=== PATIENT | male | born 1950 | race Caucasian/White ===

== ENCOUNTER 2020-12-08 11:07 | Outpatient (CLI) | payer MEDICARE, OTHER, SELFPAY ==
--- NOTE | ~2020-12-08 | US_ITS ---
EXAMINATION: US venous doppler LE RT DATE: 12/08/2020 11:49 INDICATION: Right lower limb swelling TECHNIQUE: Chung scale images without and with compression and Doppler images of the right lower extre mity veins were obtained. COMPARISON: None FINDINGS: There is thrombosis of the popliteal vein, peroneal trunk, and posterior tibial veins, and veins. The right common femoral vein, profunda vein, femoral vein, and greater saphenous veins are pa tent. IMPRESSION: Deep venous thrombosis of the popliteal, posterior tibial, and peroneal veins. Reviewed, dictated and finalized at location B.
== END 2020-12-08 11:08 | disposition home or self-care (01) ==
PROVIDERS: PCP Family Medicine; Visit Provider Family Medicine
DX: R60.0 Localized edema (principal)
CPT/HCPCS: 93971

== ENCOUNTER 2020-12-18 17:56 | Emergency (ER) | payer MEDICARE, OTHER, SELFPAY ==
[2020-12-18 18:10] VITALS: BP 165/63; PULSE 55; RESP 18; TEMP 36.5; O2SAT 99
--- NOTE | 2020-12-18 18:34 | ED.SKABFB ---
HPI - Skin/Abscess/Foreign Bdy General Chief complaint: Skin/Abscess/Foreign Body Stated complaint: Wasp Bite Time Seen by Provider: 12/18/20 18:34 Source: patient Mode of arrival: ambulatory Limitations: no limitations History of Present Illness HPI narrative: Javier Jacobs is a 70-year-old male who comes here with a wasp into his left wrist yesterday and has swelling of his forearm and hand, very little pain but is pronounced swelling. He has a PMH of high blood pressure and high cholesterol Related Data Allergies Allergy/AdvReac Type Severity Reaction Status Date / Time No Known Drug Allergies Allergy Unknown Other Verified 12/18/20 18:15 Review of Systems Review of Systems: CONSTITUTIONAL: Denies fever, chills, sweats. EYES: Denies visual changes, redness, discharge. ENT: Denies rhinorrhea, congestion, sore throat, otalgia. CARDIOVASCULAR: Denies chest pain, palpitations, edema. RESPIRATORY: Denies dyspnea, wheezing, cough GASTROINTESTINAL: Denies abdominal pain, nausea, vomiting, diarrhea. GENITOURINARY: Denies dysuria, hematuria, abnormal discharge SKIN: Denies rash or itching. Swelling of left forearm and hand from a wasp in yesterday NEUROLOGIC: Denies numbness, or focal weakness. PSYCHIATRIC: Denies anxiety or depression. [facility] Past Medical History Medical History Benign essential HTN BPH (benign prostatic hyperplasia) Gout Melanosis of colon Mixed hyperlipidemia Surgical History Surgical History H/O colonoscopy with polypectomy 2017, repeat in 2020 Family History Family History Mother Family history of premature coronary heart disease, Onset Age: 75 Sibling Family history of primary malignant neoplasm of liver Family history of malignant neoplasm of breast in first degree relative Patient's sister is Social History Social History Social History: Smoking status: Smoker, status unknown (Pt chews tobacco) Smokeless tobacco user: chewing tobacco Alcohol intake: current Drinks per week: 7 Substance use: never Substance use type: does not use Gender identity (if verbalized by the patient): Male Comments At time of signature, I agree with nursing past medical, surgical, social and family history. There is no relevant family history pertinent to the presenting complaint. Exam Narrative: GENERAL: This is a well-nourished, well-developed patient, in mild distress. HEAD: normocephalic, atraumatic. EYES: Sclera clear/white. Vision is grossly intact. EARS: External ears normal, Hearing grossly intact. NOSE: External nose normal without nasal discharge, nares without redness, no rhinorrhea. THROAT: Mucous membranes moist, NECK: Neck supple, non-tender CARDIOVASCULAR: Irregular rate and rhythm without murmurs, gallops, or rubs. RESPIRATORY: Clear to auscultation. Breath sounds equal bilaterally. No wheezes, rales, or rhonchi. GASTROINTESTINAL: Abdomen soft, SKIN: warm, intact with swelling the left forearm and hand has good sponsorship coordinator strength has good pulses skin is taunt and red NEURO: awake, alert, and oriented to person, place and time. There were no obvious focal neurologic abnormalities. Steady gait EXTREMITIES: Normal range of motion. BACK: Nontender without deformity Course Course Emergency Course: Patient comes to [facility] for treatment of the lessening of his left forearm and hand which are swollen and red Given prednisone IM 80 mg here Start on Medrol Dosepak along with Pepcid and Benadryl Vital Signs Vital signs: Vital Signs Temperature 97.7 F 12/18/20 18:10 Pulse Rate 55 L 12/18/20 18:10 Respiratory Rate 18 12/18/20 18:10 Blood Pressure 165/63 H 12/18/20 18:10 Pulse Oximetry 99 12/18/20 18:10 Temperat
[2020-12-18] MEDS: methylPREDNISolone ACETATE 80 MG/ML VIAL IM (18:50)
== END 2020-12-18 18:58 | disposition home or self-care (01) ==
PROVIDERS: Emergency Provider Nurse Practitioner; PCP Family Medicine
DX: T63.461A Toxic effect of venom of wasps, accidental (unintentional), initial encounter (principal); I10 Essential (primary) hypertension; N40.0 Benign prostatic hyperplasia without lower urinary tract symptoms; M10.9 Gout, unspecified; E78.2 Mixed hyperlipidemia; K63.89 Other specified diseases of intestine
CPT/HCPCS: 96372; 99213; G0463; J1040

== ENCOUNTER 2021-11-28 08:02 | Emergency (ER) | payer MEDICARE, OTHER, SELFPAY ==
[2021-11-28 08:13] VITALS: BP 124/73; PULSE 74; RESP 16; TEMP 37.2; O2SAT 98
--- NOTE | 2021-11-28 08:18 | ED.EXTPRO ---
HPI - Extremity Problem General Chief complaint: Skin/Abscess/Foreign Body Stated complaint: left hand swollen Time Seen by Provider: 11/28/21 08:19 History of Present Illness HPI Narrative: Javier Jacobs is a 71 yo male with a PMH HTN, high cholesterol, anticoagulation, [facility] with a wasp sting in his left wrist that is swollen that occurred yesterday. Related Data Home Medications Medication Instructions Recorded Confirmed rivaroxaban 20 mg tablet (Xarelto) tablet 11/28/21 Allergies Allergy/AdvReac Type Severity Reaction Status Date / Time No Known Drug Allergies Allergy Unknown Other Verified 07/27/21 14:21 Review of Systems Review of Systems: CONSTITUTIONAL: Denies fever, chills, sweats. EYES: Denies visual changes, redness, discharge. ENT: Denies rhinorrhea, congestion, sore throat, otalgia. CARDIOVASCULAR: Denies chest pain, palpitations, edema. RESPIRATORY: Denies dyspnea, wheezing, cough GASTROINTESTINAL: Denies abdominal pain, nausea, vomiting, diarrhea. GENITOURINARY: Denies dysuria, hematuria, abnormal discharge SKIN: Denies rash or itching. Red swollen left breast attributed to ascending NEUROLOGIC: Denies numbness, or focal weakness. PSYCHIATRIC: Denies anxiety or depression. [facility] Past Medical History Medical History Benign essential HTN BPH (benign prostatic hyperplasia) Gout Melanosis of colon Mixed hyperlipidemia Surgical History Surgical History H/O colonoscopy with polypectomy 2017, repeat in 2020 Family History Family History Mother Family history of premature coronary heart disease, Onset Age: 75 Sibling Family history of primary malignant neoplasm of liver Family history of malignant neoplasm of breast in first degree relative Patient's sister is Social History Social History Social History: Smoking status: Smoker, status unknown (Pt still chews tobacco. ) Smokeless tobacco user: chewing tobacco Alcohol intake: current Drinks per week: 7 Substance use: never Substance use type: does not use Gender identity (if verbalized by the patient): Male Sexual Orientation (if Verbalized by the Patient): Straight or Heterosexual Exam Narrative: GENERAL: This is a well-nourished, well-developed patient, in mild distress. HEAD: normocephalic, atraumatic. EYES: . Sclera clear/white. Vision is grossly intact. EARS: External ears normal, Hearing grossly intact. NOSE: External nose normal without nasal discharge, nares without redness, no rhinorrhea. THROAT: Mucous membranes moist, NECK: Neck supple, non-tender CARDIOVASCULAR: Regular rate and rhythm without murmurs, gallops, or rubs. RESPIRATORY: Clear to auscultation. Breath sounds equal bilaterally. No wheezes, rales, or rhonchi. GASTROINTESTINAL: Abdomen soft, non-tender, SKIN: warm, intact with left hand swelling, swelling. Area of bee sting is flat and clean, denies pain able to move fingers but states hand feels tight NEURO: awake, alert, and oriented to person, place and time. There were no obvious focal neurologic abnormalities. Steady gait EXTREMITIES: Normal range of motion. BACK: Nontender without deformity Course Course Emergency Course: Patient here with worsening of left hand Given 125 mg of Solu-Medrol and started on a Medrol dose taper pack discussed use to Benadryl twice daily and Pepcid 20 mg a day for the next few days Level of Care: Express Care Visit Vital Signs Vital signs: Vital Signs Temperature 98.9 F 11/28/21 08:13 Pulse Rate 74 11/28/21 08:13 Respiratory Rate 16 11/28/21 08:13 Blood Pressure 124/73 11/28/21 08:13 Pulse Oximetry 98 11/28/21 08:13 Oxygen Delivery Room Air 11/28/21 08:13 Temperature
[2021-11-28] MEDS: methylPREDNISolone SOD SUCC 125 MG VIAL IM (08:38)
== END 2021-11-28 08:59 | disposition home or self-care (01) ==
PROVIDERS: Emergency Provider Nurse Practitioner
DX: T63.461A Toxic effect of venom of wasps, accidental (unintentional), initial encounter (principal); F17.220 Nicotine dependence, chewing tobacco, uncomplicated; I10 Essential (primary) hypertension; N40.0 Benign prostatic hyperplasia without lower urinary tract symptoms; M10.9 Gout, unspecified; E78.2 Mixed hyperlipidemia; K63.89 Other specified diseases of intestine
CPT/HCPCS: 96372; 99213; G0463; J2930

== ENCOUNTER 2022-02-08 12:05 | Outpatient (CLI) | payer MEDICARE, OTHER, SELFPAY ==
--- NOTE | ~2022-02-08 | US_ITS ---
EXAMINATION:US venous doppler LE RT INDICATION:History of DVT TECHNIQUE: Multiple grayscale, color flow and Doppler images of the right lower extremity deep venous systems were obtained and reviewed. COMPARISON:12/08/2020 FINDINGS: The common femoral, superficial femoral and popliteal veins demonstrate normal respiratory variation, augmentation and compressibility. Color flow is also seen within the posterior tibial, pe roneal, greater saphenous and profunda veins. IMPRESSION: 1: No lower extremity deep venous thrombosis. Reviewed, dictated and finalized at location A.
== END 2022-02-08 12:06 | disposition home or self-care (01) ==
PROVIDERS: PCP Family Medicine; Visit Provider Nurse Practitioner Gerontology
DX: Z86.718 Personal history of other venous thrombosis and embolism (principal)
CPT/HCPCS: 93971

== ENCOUNTER 2022-07-02 11:14 | Outpatient (CLI) | payer MEDICARE, OTHER, SELFPAY ==
--- NOTE | ~2022-07-02 | XR_ITS ---
EXAMINATION: XR lumbar spine min 4V DATE: 07/02/2022 11:30 INDICATION: Low back pain TECHNIQUE: Anteroposterior, lateral, and bilateral oblique views of the lumbar spine, and cone-down l ateral view of the lumbosacral junction were obtained. COMPARISON: CT, 09/19/2017 FINDINGS: There are 3 mm of anterolisthesis of L4 on L5. Bone alignment is otherwise normal. There is no fracture. There is mild loss of intervertebral disc space height at L2-3, L4-5, and L5-S1. Small degenerative osteophytes project from the anterior endplates of multiple vertebral bodies. The verteb ral body heights are maintained. 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 IMPRESSION: 1. Mild to moderate lumbar spondylosis without acute findings. Reviewed, dictated and finalized at location L. [employer]
== END 2022-07-02 11:15 | disposition home or self-care (01) ==
PROVIDERS: PCP Family Medicine; Visit Provider Nurse Practitioner Gerontology
DX: M47.816 Spondylosis without myelopathy or radiculopathy, lumbar region (principal)
CPT/HCPCS: 72110

== ENCOUNTER 2023-03-13 14:40 | Outpatient (CLI) | payer MEDICARE, OTHER, SELFPAY ==
--- NOTE | ~2023-03-13 | XR_ITS ---
XR knee LT 3V DATE: 03/13/2023 15:04 INDICATION: Left knee sprain, pain TECHNIQUE: 3 views COMPARISON: None FINDINGS: Very prominent suprapatellar knee joint effusion. There is mild periarticular spurring of the patella. There is prominent patellar enthesopathy at the quadriceps and patellar tendon insertion sites. Cannot exclude one or more bony loose joints of the left knee joint. Minimal lateral compartment join t space spaces are well preserved. There is slight particular spurring of the medial tibial plateau. IMPRESSION: Prominent suprapatellar knee joint effusion Possible intra-articular bony loose bodies Mild osteoarthritis Prominent patellar enthesopathy at quadriceps and patellar tendon insertion sites Reviewed, dictated and finalized at location A. IMPRESSION: Prominent suprapatellar knee joint effusion Possible intra-articular bony loose bodies Mild osteoarthritis Prominent patellar enthesopathy at quadriceps and patellar tendon insertion sit es
== END 2023-03-13 14:41 | disposition home or self-care (01) ==
PROVIDERS: PCP Family Medicine; Visit Provider Family Medicine
DX: S83.92XA Sprain of unspecified site of left knee, initial encounter (principal); M17.12 Unilateral primary osteoarthritis, left knee; M76.52 Patellar tendinitis, left knee; M25.462 Effusion, left knee
CPT/HCPCS: 73562